=== PATIENT | female | born 1960 | race Caucasian/White ===

== ENCOUNTER → 2021-02-13 | Outpatient (CLI) | payer BC ==
[~2021-02-13] MED LIST: LEVAQUIN 750MG750 M1 PO; NO HOME MEDICATIONS; NORCO 325 MG-51 TAB PO; PREDNISONE10 MG PO; PROAIR HFA0.09 MG/AC; SINGULAIR 110 MG/TAB PO; SYNTHROID0.05 MG/TA PO; TESSALON P100 MG/CAP PO; VITAMIN D31000 IU PO; VITAMIN D5000 IU PO; [UNRECOGNIZED DRUG - OTHER] PO
== END ==
LOC: COL.RAD 09:59
DX: D35.01 Benign neoplasm of right adrenal gland (principal); E80.6 Other disorders of bilirubin metabolism

== ENCOUNTER → 2021-06-08 | Outpatient (CLI) | payer BC | LOC: MC.RAD 10:51 | DX: Z12.31 Encounter for screening mammogram for malignant neoplasm of breast (principal) ==